=== PATIENT | female | born 1970 | race African-American/Black ===

== ENCOUNTER 2016-12-30 03:34 | Emergency (ER) | payer SELFPAY ==
[~2016-12-30] VITALS: Ht 157.5 cm; Wt 72.6 kg
[~2016-12-30 03:34] MED LIST: CYCL10TA2 PO; HYDR-2666 PO; HYDR-971 PO
[2016-12-30 03:45] VITALS: BP 120/79
[2016-12-30] MEDS ORDERED: ONDANSETRON ODT 4 MG TAB.RAPDIS PO ONE (04:15)
--- NOTE | 2016-12-30 04:24 | ED.ADGEN ---
Past Medical History Past Medical History: No Pertinent History Past Surgical History: No Surgical History Alcohol Use: Occasionally Drug Use: None Adult General Chief Complaint Chief Complaint: NAUSEA/VOMITING/DIARRHA HPI HPI Patient is a 46 year old woman, with no significant past no history, who presents to the emergency department with complaint of nausea, vomiting, abdominal pain, generalized malaise and chills over the past day. Patient positive for sick contacts among her daughter, began expressing similar symptoms including a cough and rhinorrhea 2 days ago. Patient denies any fevers , has not taken any medications prior to coming to the ED. Denies any ingestions or exposures, any diarrhea, states abdominal pain is located in the epigastric region, no chest pain or shortness breath, no headache, no weakness, numbness or tingling, no sore throat or rhinorrhea, no upper is at her symptoms , no weakness, numbness or tingling, complaining of generalized body aches. Did not receive flu vaccination this year. Review of Systems Review of Systems Constitutional: Denies fever, complaining of chills. Eyes: Denies change in visual acuity. [] HENT: Denies nasal congestion or sore throat. [] Respiratory: Denies cough or shortness of breath. [] Cardiovascular: Denies chest pain or edema. [] GI: Epigastric abdominal pain, nausea, vomiting, no bloody stools or diarrhea. Last bowel movement was yesterday and was normal. : Denies dysuria. [] Musculoskeletal: Denies back pain or joint pain. [] Integument: Denies rash. [] Neurologic: Denies headache, focal weakness or sensory changes. [] Endocrine: Denies polyuria or polydipsia. [] Lymphatic: Denies swollen glands. [] Psychiatric: Denies depression or anxiety. [] Current Medications Current Medications Current Medications Medications (Trade) Dose Ordered Sig/Toan Start Time Stop Time Status Last Admin Dose Admin Ondansetron HCl (Zofran Odt) 4 mg 1X ONCE 12/30/16 04:15 12/30/16 04:30 DC 12/30/16 04:19 4 MG Allergies Allergies Allergies Coded Allergies Type Severity Reaction Last Updated Verified No Known Drug Allergies 10/24/13 No Physical Exam Physical Exam Constitutional: Well developed, well nourished, no acute distress, non-toxic appearance. [] HENT: Normocephalic, atraumatic, bilateral external ears normal, oropharynx moist, no oral exudates, nose normal. [] Eyes: PERRLA, EOMI, conjunctiva normal, no discharge. [] Neck: Normal range of motion, no tenderness, supple, no stridor. [] Cardiovascular:Heart rate regular rhythm, no murmur , S1, S2, no rubs or gallops. No chest wall tenderness or crepitus. [] Lungs & Thorax: Bilateral breath sounds clear to auscultation, no wheezing, rhonchi, rales. [] Abdomen: Bowel sounds normal, soft, tenderness to palpation in the epigastric region, no rebound, rigidity, no guarding, no masses, no pulsatile masses. [] Skin: Warm, dry, no erythema, no rash. [] Back: No tenderness, no CVA tenderness. [] Extremities: No tenderness, no cyanosis, no clubbing, ROM intact, no edema. [] Neurologic: Alert and oriented X 3, normal motor function, normal sensory function, no focal deficits noted. [] Psychologic: Affect normal, judgement normal, mood normal. [] Current Patient Data Vital Signs Vital Signs Date Time Temp Pulse Resp B/P Pulse Ox O2 Delivery O2 Flow Rate FiO2 12/30/16 03:45 98.2 87 18 99 Room Air 98.2 Lab Values Laboratory Tests Test 12/30/16 04:00 Influenza Type A Antigen Negative (NEGATIVE) Influenza Type B Antigen Negative (NEGATIVE) EKG EKG Not indicated. [] Radiology/Procedures Radiology/Procedures Not indicated. [] Course & Med Decision Making Course & Med Decision Making Pertinent Labs and Imaging studies reviewed. (See chart for details) Patient well-appearing emergency department, afebrile, examination, history and symptoms consistent with a viral illness. Flu swab obtained as the patient began he sprinting symptoms less than 24 hours ago, flu swab was negative and the ED. Patient received Zofran, with resolution of her nausea, tolerating by mouth fluids in the ED, on reevaluation she is asleep in the ED, and states she is feeling better. We did discuss concerning symptoms that would prompt return to the emergency department, follow-up with her primary care provider, patient discharged home in stable condition with pressure for Zofran, detailed medication and return precautions as stated above. Dragon Disclaimer Dragon Disclaimer This electronic medical record was generated, in whole or in part, using a voice recognition dictation system. Departure Impression: Primary Impression: Viral illness Additional Impression: Nausea and vomiting Disposition: HOME, SELF-CARE Condition: IMPROVED Scripts Ondansetron Hcl (Zofran)4 Mg Tablet1 Tab PO PRN Q6-8HRS PRN NAUSEA #12 TAB Prov:PEDRO GIBSON DO 12/30/16 Problem Qualifiers PEDRO GIBSON DO Dec 30, 2016 04:24
[2016-12-30 04:49] LABS: OBC FLU VALID
[2016-12-30] MEDS ORDERED: ONDA4TAB7 PO (04:59)
== END 2016-12-30 05:00 | disposition home or self-care (01) ==
LOC: ER 03:34
DX: B34.9 Viral infection, unspecified (principal); R10.13 Epigastric pain
CPT/HCPCS: 87804; 99284; Q0162